=== PATIENT | female | born 1945 | race Caucasian/White ===

== ENCOUNTER 2017-08-30 18:05 | Emergency (ER) | payer OTHER ==
[~2017-08-30] VITALS: Ht 162.6 cm; Wt 96.8 kg
[~2017-08-30 18:05] MED LIST: LEVO500T47 PO
[2017-08-30] MEDS ORDERED: HYDROmorphone 1 MG/ML, 1ML ONE (18:46)
[2017-08-30] MEDS ORDERED: KETOROLAC 30 MG/1 ML ONE ×2 (18:46→19:20)
[2017-08-30] MEDS ORDERED: ONDANSETRON 2MG/ML, 2ML ONE (18:46)
[2017-08-30] MEDS ORDERED: HYDROmorphone 1 MG/ML, 1ML IVPush PRN (19:00)
[2017-08-30] MEDS ORDERED: KETOROLAC 30 MG/1 ML IVPush ONE ×2 (19:00)
[2017-08-30] MEDS ORDERED: ONDANSETRON 2MG/ML, 2ML IVPush ONE (19:00)
[2017-08-30] MEDS ORDERED: SODIUM CHLORIDE 0.9% 1,000ML IV ONE (19:00)
[2017-08-30] MEDS ORDERED: SODIUM CHLORIDE FLUSH 10ML SYR IVF ONE (19:00)
[2017-08-30 19:12] LABS: HEMATOCRIT 45.1 % (34.6-47.8); HEMOGLOBIN 15.5 g/dL (11.7-16.4); WHITE BLOOD COUNT 8.7 x10^3/uL (3.4-10)
[2017-08-30 19:16] LABS: ASPARTATE AMINO TRANSFERASE 21 U/L (15-37); BLOOD UREA NITROGEN 23 mg/dL (7-18)
[2017-08-30 20:42] VITALS: BP 161/89
== END 2017-08-30 21:39 | disposition home or self-care (01) ==
LOC: ED 21:37
DX: N13.2 Hydronephrosis with renal and ureteral calculous obstruction (principal); J45.909 Unspecified asthma, uncomplicated; K21.9 Gastro-esophageal reflux disease without esophagitis; Z88.0 Allergy status to penicillin
CPT/HCPCS: 36415; 74176; 80053; 81001; 83690; 85025; 87086; 96361; 96374; 96375; 96376; 99285; J1170; J1885; J2405; J7030

== ENCOUNTER 2020-08-20 11:27 | Inpatient (IN) | payer MEDICARE, OTHER ==
[~2020-08-20] VITALS: Ht 162.6 cm; Wt 102.0 kg
[2020-08-20] VITALS (9 sets, daily range): BP systolic 139–162; BP diastolic 70–94
--- NOTE | 2020-08-20 12:10 | NUR ---
PT SENT FROM FOR LOW H&H. PT APPEARS PALE, AND OUT OF BREATH. PT DENIES BLACK OR TARRY STOOLS. PT STATES SHE HAS BEEN WEAK AND TIRED LATELY. PT IS RESTING IN [facility]. AWAITING FOR
[2020-08-20 12:50] LABS: MEAN PLATELET VOLUME 7.1 fL (7.4-10.4); PLATELET COUNT 410 x10^3/uL (130-400); RED BLOOD COUNT 3.77 x10^6/uL (3.82-5.3); RED CELL DISTRIBUTION WIDTH 19.4 % (9.6-15.2)
[2020-08-20 12:51] LABS: MEAN CORPUSCULAR HGB CONC 29.5 g/dL (32.4-35.8)
--- NOTE | 2020-08-20 13:00 | NUR ---
RECIEVED REPROT FROM [facility]. PT RESTING CALMLY IN BED AT THIS TIME. WILL CONTINUE TO MONITOR. AWAITING LABS TO RESULT, CONTACTED LAB, STATED LABS ARE PROCESSING
[2020-08-20 13:03] LABS: INTERNATIONAL NORMALIZED RATIO 1.04 (0.93-1.1); PROTHROMBIN TIME 10.7 Seconds (9.6-11.5)
[2020-08-20 13:09] LABS: MD YES
[2020-08-20 13:11] LABS: ANISOCYTOSIS 1+; BAND#(MANUAL) 0.05 x10^3/uL; BANDS%(MANUAL) 1 % (0-7); EOS#(MANUAL) 0.16 x10^3/uL (0.0-0.4); EOS% (MANUAL) 3 % (1-7); LYMPHS% (MANUAL) 24 % (22-44); MICROCYTOSIS 1+; MONOS#(MANUAL) 0.11 x10^3/uL (0.3-2.7); MONOS% (MANUAL) 2 % (2-9); OVALOCYTES 1+; POLYCHROMASIA 1+; SEG#(MANUAL) 3.78 x10^3/uL (1.8-6.8); SEGS% (MANUAL) 70 % (42-75)
[2020-08-20 13:12] LABS: <PLATELET ESTIMATE> INCREASED; <PLT MORPHOLOGY> NORMAL PLT MORPH; ALANINE AMINOTRANSFERASE 19 U/L (12-78); ALBUMIN 3.6 g/dL (3.4-5.0); ANION GAP 4 mmol/L (5-15); CALCIUM 8.9 mg/dL (8.5-10.1); CHLORIDE 110 mmol/L (98-107); CREATININE 1.01 mg/dL (0.55-1.02)
[2020-08-20 13:13] LABS: ALKALINE PHOSPHATASE 69 U/L (45-117); BILIRUBIN,TOTAL 0.4 mg/dL (0.2-1.0); TOTAL PROTEIN 7.1 g/dL (6.4-8.2)
--- NOTE | 2020-08-20 14:20 | NUR ---
ORDERED BLOOD INFUSING. HOSPITALIST IN ROOM WITH PT. PT VSS AT THIS TIME. WILL CONTINUE TO MONITOR.
[2020-08-20] MEDS ORDERED: MELATONIN 5 MG TABLET PO PRN (14:30)
[2020-08-20] MEDS ORDERED: ACETAMINOPHEN 325 MG TABLET PO PRN (14:30)
[2020-08-20] MEDS ORDERED: morphine SULFATE 10 MG/ML, 1ML IVPush PRN (14:30)
[2020-08-20] MEDS ORDERED: HYDROcodone/APAP 5/325 TABLET PO PRN (14:30)
[2020-08-20] MEDS ORDERED: ONDANSETRON 2MG/ML, 2ML IVPush PRN (14:30)
[2020-08-20] MEDS ORDERED: ONDANSETRON ODT 4 MG PO PRN (14:30)
[2020-08-20] MEDS ORDERED: ENALAPRILAT 1.25 MG/ML, 2ML IVPush PRN (14:30)
--- NOTE | 2020-08-20 15:10 | NUR ---
REPORT GIVEN TO JOELLEN BOWLING
[2020-08-20] MEDS ORDERED: MAGNESIUM CITRATE 300ML ORAL SOL PO ONE (17:30)
[2020-08-20] MEDS: PANTOPRAZOLE 40 MG IV IVPush SCH (20:47)
[2020-08-20 21:49] LABS: OCCULT BLOOD NEGATIVE (NEGATIVE)
[2020-08-21 00:23] VITALS: BP 156/84
[2020-08-21 02:35] LABS: ALBUMIN 3.6 g/dL (3.4-5.0); ANION GAP 5 mmol/L (5-15); CALCIUM 8.8 mg/dL (8.5-10.1); CHLORIDE 109 mmol/L (98-107)
[2020-08-21 02:39] LABS: ALANINE AMINOTRANSFERASE 20 U/L (12-78); ALKALINE PHOSPHATASE 66 U/L (45-117); BILIRUBIN,TOTAL 1.2 mg/dL (0.2-1.0); CREATININE 0.87 mg/dL (0.55-1.02); TOTAL PROTEIN 6.8 g/dL (6.4-8.2)
[2020-08-21 06:29] VITALS: BP 129/83
[2020-08-21] MEDS: PANTOPRAZOLE 40 MG IV IVPush SCH ×2 (07:45→20:17)
[2020-08-21] MEDS: IRON SUCROSE COMPLEX 100MG/5ML IV SCH (11:37)
[2020-08-21 13:09] VITALS: BP 162/78
[2020-08-21] MEDS ORDERED: GOLYTELY 4,000ML ORAL.SOL PO ONE (18:00)
[2020-08-21 20:16] VITALS: BP 167/88
[2020-08-22 02:04] VITALS: BP 148/81
[2020-08-22 06:33] VITALS: BP 138/76
[2020-08-22] MEDS: IRON SUCROSE COMPLEX 100MG/5ML IV SCH (08:13)
[2020-08-22] MEDS: PANTOPRAZOLE 40 MG IV IVPush SCH (08:13)
[2020-08-22 12:18] VITALS: BP 160/81
[2020-08-22] MEDS ORDERED: PROPOFOL 10 MG/ML, 20ML ONE ×2 (14:28)
[2020-08-22] MEDS ORDERED: OMEP20TA62 PO (16:19)
[2020-08-22] MEDS ORDERED: FLU VACC QS2020-21(6MOS UP)/PF 60MCG/0.5 ML SYR IM-VACC ONE (17:30)
== END 2020-08-22 17:26 | disposition home or self-care (01) | DRG 811 ==
LOC: ED 13:21 → EDIP 14:01 → SUATTDRO 14:01 → 5SO 15:57
PROVIDERS: ADMIT Hospitalist; ATTEND Hospitalist
PROC: 30233N1 Transfusion of Nonautologous Red Blood Cells into Peripheral Vein, Percutaneous Approach (ICD-10-PCS; principal; 2020-08-20)
PROC: 0DB68ZX Excision of Stomach, Via Natural or Artificial Opening Endoscopic, Diagnostic (ICD-10-PCS; 2020-08-22)
PROC: 0DJD8ZZ Inspection of Lower Intestinal Tract, Via Natural or Artificial Opening Endoscopic (ICD-10-PCS; 2020-08-22)
DX: D50.0 Iron deficiency anemia secondary to blood loss (chronic) (principal); K29.01 Acute gastritis with bleeding; J44.9 Chronic obstructive pulmonary disease, unspecified; K44.9 Diaphragmatic hernia without obstruction or gangrene; K59.09 Other constipation; Z88.6 Allergy status to analgesic agent; Z88.2 Allergy status to sulfonamides; Z88.8 Allergy status to other drugs, medicaments and biological substances; Z20.828 Contact with and (suspected) exposure to other viral communicable diseases; K22.70 Barrett's esophagus without dysplasia; K29.60 Other gastritis without bleeding; K57.30 Diverticulosis of large intestine without perforation or abscess without bleeding; Z80.8 Family history of malignant neoplasm of other organs or systems; K21.9 Gastro-esophageal reflux disease without esophagitis
CPT/HCPCS: 36415; 80053; 82272; 82607; 83540; 83550; 83605; 83690; 84439; 84443; 85018; 85025; 85610; 85730; 86850; 86900; 86923; 87635; 88305; 90686; 93005; G0378; J1756; J2704; C9113; P9016

== ENCOUNTER → 2021-01-28 | Outpatient (CLI) | payer OTHER ==
[~2021-01-28] MED LIST changes: +DOBUTAMINE/D5W PMX 250 ML ONE; +OMEP20TA62 PO
== END | disposition home or self-care (01) ==
LOC: CFH 08:29
PROVIDERS: ATTEND Family Medicine
DX: Z12.31 Encounter for screening mammogram for malignant neoplasm of breast (principal); K44.9 Diaphragmatic hernia without obstruction or gangrene; M81.0 Age-related osteoporosis without current pathological fracture; R06.00 Dyspnea, unspecified; Z78.0 Asymptomatic menopausal state
CPT/HCPCS: 71046; 77063; 77067; 77080; 93017; 93350; J1250

== ENCOUNTER → 2021-03-08 | Outpatient (CLI) | payer OTHER ==
[~2021-03-08] MED LIST changes: -DOBUTAMINE/D5W PMX 250 ML ONE; +REGADENOSON 0.4 MG/5 ML SYRINGE ONE
== END | disposition home or self-care (01) ==
LOC: CVU 06:35
PROVIDERS: ATTEND Internal Medicine Cardiovascular Disease
DX: I08.8 Other rheumatic multiple valve diseases (principal); I10 Essential (primary) hypertension; R06.02 Shortness of breath
CPT/HCPCS: 78452; 93017; 93306; A9502; J2785